=== PATIENT | female | born 1995 | race African-American/Black ===

== ENCOUNTER 2020-09-02 17:18 | Emergency (ER) | payer OTHER, SELFPAY ==
[2020-09-02 17:31] VITALS: BP 129/87; PULSE 79; RESP 14; TEMP 36.3; O2SAT 99
[2020-09-02 17:43] LABS: Basophils Absolute Auto 0.1 K/mm3 (0.0-0.1); Basophils Percent Auto 0.9 % (0.2-1.2); Eosinophils Absolute Auto 0.1 K/mm3 (0-0.3); Eosinophils Percent Auto 2.2 % (0-4.4); Hematocrit 44.2 % (37.0-47.0); Hemoglobin 15.2 g/dL (12.0-15.0); Immature Granulocyte Absolute 0.01 K/mm3 (0.00-0.031); Immature Granulocyte Percent A 0.2 % (0-0.5); Lymphocytes Percent Auto 33.4 % (18.3-44.2); Mean Corpuscular HGB Conc 34.4 g/dl (32-36); Mean Corpuscular Hemoglobin 30.9 pg (26-34); Mean Corpuscular Volume 89.8 fl (80-100); Mean Platelet Volume 10.3 fl (7.4-10.4); Monocytes Absolute Auto 0.5 K/mm3 (0.1-0.6); Monocytes Percent Auto 9.1 % (2.6-8.5); Neutrophils Absolute Auto 2.9 K/mm3 (1.3-6.7); Neutrophils Percent Auto 54.2 % (45.5-73.1); Platelet Count Result 288 k/mm3 (150-375); Red Blood Count 4.92 M/mm3 (4.2-5.4); White Blood Count 5.4 K/mm3 (4.5-10.0)
[2020-09-02 18:12] LABS: Beta HCG Quantitative < 2.39 mIU/ML
--- NOTE | 2020-09-02 18:15 | ED.FEMALEGU ---
HPI - Female Genitourinary General Chief complaint: SKI PATROL Stated complaint: Possible Miscarriage Time Seen by Provider: 09/02/20 18:08 Source: patient Mode of arrival: ambulatory Limitations: no limitations History of Present Illness HPI Narrative: This is a 25-year-old female that presents the emergency department for abnormal menstrual bleeding. Reports she is about a week late. She started her cycle today and it is very heavy. Also reports menstrual cramping. She took ibuprofen with relief. Denies fever, vomiting, dysuria. Related Data Home Medications Medication Instructions Recorded Confirmed No Home Medications 09/02/20 09/02/20 Allergies Allergy/AdvReac Type Severity Reaction Status Date / Time No Known Allergies Allergy Verified 09/02/20 19:05 Review of Systems Review of Systems: Narrative: CONSTITUTIONAL: Denies fever GASTROINTESTINAL: Reports pelvic pain, nausea. Denies vomiting, or diarrhea. GENITOURINARY: Denies dysuria SKIN: Denies rash All systems reviewed & are unremarkable except as noted in HPI and below PMFSH Past Medical History Medical History (Updated 09/02/20 @ 20:21 by Lillian Arango PA-C) No active medical problems Social History Social History (Updated 09/02/20 @ 18:17 by Lillian Arango PA-C) Smoking status: Never smoker Substance use: never Exam Narrative: Exam Narrative: GENERAL: Well-appearing, well-nourished, and in no acute distress. HEAD: Normocephalic, atraumatic. EYES: EOMI. CHEST: Clear to auscultation. No respiratory distress. No wheezes rales or rhonchi HEART: Regular rate and rhythm. No murmur heard. Normal peripheral pulses. ABDOMEN: Soft, nontender, nondistended, normal active bowel sounds. No CVA tenderness EXTREMITIES: Normal range of motion. No edema. SKIN: Warm, dry, no rash. NEURO: No focal deficits. Alert and oriented x3. PSYCH: Normal mood and affect PELVIC: Normal external genitalia. Mild to moderate amount of blood in the vaginal vault. No cervical motion tenderness Course Vital Signs Vital signs: Vital Signs Temperature 97.4 F L 09/02/20 17:31 Pulse Rate 79 09/02/20 17:31 Respiratory Rate 14 09/02/20 17:31 Blood Pressure 129/87 09/02/20 17:31 Pulse Oximetry 99 09/02/20 17:31 Temperature 97.4 F L 09/02/20 17:31 Pulse Rate 67 09/02/20 19:10 Respiratory Rate 18 09/02/20 19:05 Blood Pressure 117/80 09/02/20 19:10 Pulse Oximetry 99 09/02/20 19:05 MDM - Female Genitourinary MDM Narrative Medical decision making narrative: Patient presents to the emergency department for abnormal uterine bleeding. She is afebrile and nontoxic-appearing. Her vitals are stable. CBC is without leukocytosis. Does show mild hemoconcentration with hemoglobin of 15.2. Metabolic panel without concerning findings. Bedside is negative quantitative beta-hCG is also negative. UA without overt evidence of infection, likely a contaminated catch with many squamous epithelial cells. Pelvic exam shows mild amount of blood in the vaginal vault, no concerning bleeding. Patient was updated on case findings. She is stable and felt appropriate for further outpatient evaluation. Was instructed to follow-up with her clinical informatics physician. She was given warnings to return to the ER Lab Data Attestation: I reviewed the patient's lab results. Result diagrams: 09/02/20 17:37 09/02/20 17:36 Labs: Lab Results 09/02/20 09/02/20 09/02/20 Range/Units 17:36 17:37 17:37 WBC 5.4 (4.5-10.0) K/mm3 RBC 4.92 (4.2-5.4) M/mm3 Hgb 15.2 H (12.0-15.0) g/dL Hct 44.2 (37.0-47.0) % MCV 89.8 (80-100) fl MCH 30.9 (26-34) pg MCHC 34.4 (32-36) g/dl RDW 12.0 (11.5-14.5) % Plt Count 288 (150-375) k/mm3 MPV 10.3 (7.4-10.4) fl Immature Gran % (Auto) 0.2 (0-0.5) % Neut % (Auto) 54.2 (45.5-73.1) % Lymph % (Auto) 33.4 (18.3-44.2) % [place] % (Auto) 9.1 H (2.6
[2020-09-02 18:44] LABS: Alanine Aminotransferase 16 U/L (4-35); Albumin Level 4.9 g/dL (3.5-5.1); Alkaline Phosphatase 73 U/L (38-126); Anion Gap 11 mmol/L (8-16); Aspartate Amino Transferase 43 U/L (14-36); Bilirubin,Total 0.9 mg/dL (0.2-1.3); Blood Urea Nitrogen 14 mg/dL (7-17); Carbon Dioxide 23 mmol/L (22-30); Chloride 108 mmol/L (98-107); Estimated CRCL calculation 85 ml/min; Estimated Glomerular Filt Rate > 60; Glucose 95 mg/dL (65-105); Potassium 3.9 mmol/L (3.4-5.0); Sodium 142 mmol/L (137-145)
[2020-09-02 19:05] VITALS: BP 117/80; PULSE 69; RESP 18; O2SAT 99
[2020-09-02 19:10] VITALS: BP 108/92; BP 112/77; BP 117/80; PULSE 59; PULSE 67
[2020-09-02 19:48] LABS: Add Urine Microscopic? YES; Amorphous Sediment Urine Moderate; Appearance Urine Turbid (Clear); Bacteria Urine 1+ /hpf; Bilirubin Urine Negative (Negative); Blood Urine 3+ (Negative); Color Urine Red (Yellow); Glucose Urine UA Negative (Negative); Ketones Urine Negative (Negative); Leukocyte Esterase Ur Trace LEU/UL (Negative); Mucus Urine Heavy /lpf; Nitrate Urine Negative (Negative); Protein Urine 3+ mg/dL (Negative); RBC Urine >75 /hpf (0-2); Squamous Epithelial Cell Urine Many /hpf (Few); Urobilinogen Urine Negative mg/dL (<2.0)
== END 2020-09-02 20:38 | disposition home or self-care (01) ==
PROVIDERS: Physician Assistant; Emergency Provider Emergency Medicine
DX: N93.9 Abnormal uterine and vaginal bleeding, unspecified (principal); R82.998 Other abnormal findings in urine; Z11.3 Encounter for screening for infections with a predominantly sexual mode of transmission
CPT/HCPCS: 36415; 80053; 81001; 81025; 84702; 85025; 85461; 87070; 87086; 87491; 87591; 87808; 99284